=== PATIENT | male | born 1945 | race Caucasian/White ===

== ENCOUNTER 2017-09-15 11:11 | Day surgery (SDC) | payer MEDICARE, MEDICAID ==
[~2017-09-15] VITALS: Ht 177.8 cm; Wt 80.0 kg
[2017-09-15] VITALS (11 sets, daily range): BP systolic 120–166; BP diastolic 71–79; PULSE 42–61; TEMP 80–98.1
[2017-09-15 11:52] LABS: HEMATOCRIT 40.3 % (42.0-52.0); HEMOGLOBIN 13.1 g/dl (13.5-18.0); MEAN CELL VOLUME 96 fl (80.0-100.0); MEAN CORPUSCULAR HEMOGLOBIN 31 pg (27.0-31.0); MEAN CORPUSCULAR HGB CONC 33 g/dl (33.0-37.0); MEAN PLATELET VOLUME 11.1 fl (7.4-10.4); PLATELET COUNT 190 K/mm3 (130-400); RED BLOOD COUNT 4.19 M/mm3 (4.20-5.60); WHITE BLOOD COUNT 4.7 K/mm3 (4.8-10.8)
[2017-09-15 12:02] LABS: INR 1.1 (0.8-3.0); PROTHROMBIN TIME 12.3 SECONDS (9.7-12.8)
[2017-09-15 12:12] LABS: CALCIUM 9.7 mg/dL (8.4-10.2); CREATININE, serum 0.92 mg/dL (0.66-1.25); POTASSIUM 4.3 mmol/L (3.4-5.0)
[2017-09-15] MEDS ORDERED: ZESTRIL40 MG PO (12:46)
[2017-09-15] MEDS ORDERED: ASPIRIN 81M81 MG/TA2 PO (12:47)
[2017-09-15] MEDS ORDERED: GLUCOPHAGE500 MG/TAB PO (12:47)
[2017-09-15] MEDS ORDERED: NORVASC2.5 MG PO (12:47)
[2017-09-15] MEDS ORDERED: LIPITOR 40MG TA40 MG PO (12:48)
[2017-09-15] MEDS ORDERED: PEPCID 20MG TAB20 MG PO (12:49)
== END 2017-09-15 18:30 ==
LOC: COL.CAR 11:11
PROVIDERS: Internal Medicine Cardiovascular Disease
DX: I20.9 Angina pectoris, unspecified (principal); R94.39 Abnormal result of other cardiovascular function study; Z82.49 Family history of ischemic heart disease and other diseases of the circulatory system
CPT/HCPCS: J1644; J2250; J3010; Q9967